=== PATIENT | female | born 1995 | race Caucasian/White ===

== ENCOUNTER 2018-08-30 16:27 | Emergency (ER) | payer SELFPAY ==
[~2018-08-30] VITALS: Ht 172.7 cm; Wt 81.2 kg
[2018-08-30 16:51] VITALS: BP 105/73
--- NOTE | 2018-08-30 17:09 | NUR ---
PT AMBULATED TO BED 12.
--- NOTE | 2018-08-30 17:13 | NUR ---
PATIENT PRESENTS TO ED WITH C/O COUGH, NASAL CONGESTION, BODYACHES, F/C, EMESIS X YESTERDAY, DENIES DIARRHEA .PATIENT STATES BODYACHING 10 AT THIS TIME; VSS; PATIENT POSITIONED FOR COMFORT; HOB ELEVATED; BEDRAILS UP X2; BED DOWN. ER MD MADE AWARE OF PT STATUS.
[2018-08-30] MEDS ORDERED: KETOROLAC 30 MG/ML VIAL IM ONE (17:40)
[2018-08-30] MEDS ORDERED: ONDANSETRON 4 MG ODT PO ONE (17:40)
--- NOTE | 2018-08-30 18:09 | NUR ---
KRISTIE AND STAP A SWAP DONE, CALLED LAB TO [employer].
[2018-08-30 19:05] VITALS: BP 105/73
--- NOTE | 2018-08-30 19:24 | NUR ---
Patient discharged with v/s stable. Written and verbal after care instructions given and explained. Patient alert, oriented and verbalized understanding of instructions. Ambulatory with steady gait. All questions addressed prior to discharge. ID band removed. Patient advised to follow up with PMD. Rx of zofran, promethazine, penicillin and ibuprofen was given. Patient educated on indication of medication including possible reaction and side effects. Opportunity to ask questions provided and answered.
== END 2018-08-30 19:05 | disposition home or self-care (01) ==
LOC: MED 16:27
DX: J02.8 Acute pharyngitis due to other specified organisms (principal); B96.89 Other specified bacterial agents as the cause of diseases classified elsewhere
CPT/HCPCS: 81002; 87081; 87804; 96372; 99283; J1885; Q0162

== ENCOUNTER 2023-07-26 14:08 | Emergency (ER) | payer OTHER ==
[~2023-07-26] VITALS: Ht 172.7 cm; Wt 86.2 kg
[2023-07-26 14:11] VITALS: BP 160/65; PULSE 75; RESP 18; TEMP 98.3; O2SAT 99
[2023-07-26] MEDS ORDERED: CYCLOBENZAPRINE 10 MG TAB PO ONE (14:40)
[2023-07-26] MEDS ORDERED: KETOROLAC 30 MG/ML VIAL IM ONE (14:40)
[2023-07-26] MEDS ORDERED: CYCL-711 PO (14:43)
[2023-07-26] MEDS ORDERED: LID5T TP (14:43)
[2023-07-26] MEDS ORDERED: NAPR-54 PO (14:43)
[2023-07-26] MEDS ORDERED: KETOROLAC 30 MG/ML VIAL ONE (16:02)
[2023-07-26] MEDS ORDERED: CYCLOBENZAPRINE 10 MG TAB ONE (16:02)
== END 2023-07-26 16:54 | disposition home or self-care (01) ==
LOC: MED 14:08
DX: M54.6 Pain in thoracic spine (principal); V49.88XA Car occupant (driver) (passenger) injured in other specified transport accidents, initial encounter; Y93.89 Activity, other specified; Y92.89 Other specified places as the place of occurrence of the external cause; Y99.8 Other external cause status
CPT/HCPCS: 81025; 96372; 99283; J1885